=== PATIENT | female | born 1950 | race Caucasian/White ===

== ENCOUNTER 2023-04-29 13:24 | Outpatient (AMB) | payer MEDICARE, OTHER, SELFPAY ==
--- NOTE | 2023-04-29 13:26 | MHC.OFFWIV ---
Intake Vital Signs 04/29/23 13:27 Height 5 ft 5 in Weight 173 lb BMI 28.8 BP 130/62 Blood Pressure Location Rt brachial Position Sitting Pulse 65 Pulse Source Pulse Oximeter Temp 98 F Temp Source Temporal Artery Scan Pulse Oximetry (%) 95 Oxygen Delivery Method Room Air Intake Visit Reasons: [employer] Cough, Diff Breathing, Tired (masked-Lobby) Patient Tobacco Use Status: Never used Tobacco Allergies No Known Allergies Allergy (Verified 04/29/23 16:05) Medication List - Last Reconciled 04/29/23 by Sin Martel MD albuterol sulfate 90 mcg/actuation (Ventolin HFA) 1 inh inhalation QID PRN amlodipine 5 mg PO DAILY azithromycin (Zithromax) take 500 mg today (day 1), then 250 mg for 4 days (days 2-5) PO citalopram 10 mg PO DAILY levothyroxine 0 mcg PO lisinopril 10 mg PO DAILY lorazepam 0.5 mg PO pravastatin 40 mg PO DAILY valacyclovir 2,000 mg PO BID HPI [employer] Cough, Diff Breathing, Tired (masked-Lobby) HPI Details Patient presents for a sick visit. Reporting symptoms of sinus congestion, sore throat and difficulty swallowing. Low-grade fever. No family member is sick. No recent travel. Patient reports symptoms of malaise and fatigue. PFSH Social History Patient Tobacco Use Status: Never used Tobacco Physical Exam Vital Signs: Last Vital Signs Temp 98 F 04/29/23 13:27 Pulse 65 04/29/23 13:27 BP 130/62 04/29/23 13:27 Pulse Ox 95 04/29/23 13:27 Oxygen Delivery Method Room Air 04/29/23 13:27 BMI result Body Mass Index 28.8 Const General: cooperative and healthy appearing Nutritional Appearance: well nourished Orientation/consciousness: patient oriented x3 Limitations: no limitations HEENT Head: Yes normal to inspection Eyes General: appearance normal, both eyes and all related structures Neck Neck: Yes normal visual inspection Chest Chest palpation & inspection: normal palpation of entire chest wall Resp Effort & Inspection: normal respiratory effort Neuro General: patient oriented x3 Assessment & Plan Assessment & Plan (1) Upper respiratory tract infection: Code(s): J06.9 - Acute upper respiratory infection, unspecified Plan: Antibiotics ordered. Increase fluid intake. Tylenol for aches and pains. If symptoms worsen, follow-up here for a recheck. Orders: Orders SARS-CoV2/FLU/RSV Today R43.9 - Unspecified disturbances of smell and taste Medications: New azithromycin (Zithromax) take 500 mg today (day 1), then 250 mg for 4 days (days 2-5) PO 6 tabs 0RF albuterol sulfate 90 mcg/actuation (Ventolin HFA) 1 inh inhalation QID PRN 8.5 grams 1RF shortness of breath or wheezing Coding Level of Care Code Est Pt Level 3 (58883) Diagnoses Upper respiratory tract infection J06.9
[2023-04-29 13:27] VITALS: BP 130/62; PULSE 65; TEMP 36.6; O2SAT 95; BMI 28.8
== END 2023-04-29 14:18 | disposition home or self-care (01) ==
PROVIDERS: PCP Internal Medicine; Visit Provider Internal Medicine
DX: J06.9 Acute upper respiratory infection, unspecified (principal)
CPT/HCPCS: 99213

== ENCOUNTER 2023-04-29 14:58 | Outpatient (REF) | payer MEDICARE, OTHER, SELFPAY ==
[2023-04-30 04:26] LABS: Influenza A PCR NEGATIVE (Negative); Influenza B PCR NEGATIVE (Negative); Resp Syncy Virus RNA Qual PCR NEGATIVE (Negative); SARS COV2 PCR INHOUSE NEGATIVE (Negative)
== END 2023-04-29 14:59 | disposition home or self-care (01) ==
LOC: HO.LAB 14:58
PROVIDERS: PCP Internal Medicine; Visit Provider Internal Medicine
DX: Z20.822 Contact with and (suspected) exposure to COVID-19 (principal); R43.9 Unspecified disturbances of smell and taste
CPT/HCPCS: 0241U